=== PATIENT | female | born 1980 | race American Indian/Alaskan Native ===

== ENCOUNTER 2022-03-23 08:18 | Emergency (ER) | payer SELFPAY ==
[~2022-03-23] VITALS: Ht 170.2 cm; Wt 132.0 kg
[2022-03-23 08:25] VITALS: BP 184/95
[2022-03-23] MEDS ORDERED: IBUP800T27 PO (08:52)
== END 2022-03-23 09:03 | disposition home or self-care (01) ==
LOC: ER 08:18
DX: N76.4 Abscess of vulva (principal)